=== PATIENT | female | born 1990 | race American Indian/Alaskan Native ===

== ENCOUNTER 2016-09-14 09:54 | Emergency (ER) | payer SELFPAY ==
[2016-09-14 10:31] VITALS: BP 117/75
[2016-09-14] MEDS ORDERED: TYLENOL #3 PO ONE (11:57)
[2016-09-14] MEDS ORDERED: FUL-GLO OP ONE (11:57)
[2016-09-14] MEDS ORDERED: TETRACAINE 0.5% OU ONE (11:57)
--- NOTE | 2016-09-14 13:21 | Emergency Department Report ---
Eye Injury/Foreign Body - HPI Duration: 1 Day Eye Location: Left Severity: Mild Tetanus Status: Unknown Eye Symptoms: Eye Pain: Yes, Blurred Vision: Yes, Eye Redness: Yes (mild), Grinding/Hammering Metal: No, Used Eye Protection: No, Contact Lens Use: No, Recalls Injury: Yes (hit in face with football), Photophobia: No Other History: 26 year old female presents to ED with left sided eye pain after being hit in face with football. patient denies LOC, bleeding, AMS, weakness, loss of vision. patient is stable, neurologically intact and in no acute distress. patient states LMP was September 05, 2016. ED Review of Systems ROS: Stated complaint: LT EYE INJURY Other details as noted in HPI Constitutional: denies: chills, fever Eyes: eye pain, vision change (mild blurry vision after incident. now resolved. ). denies: eye discharge ENT: denies: ear pain, throat pain Respiratory: denies: cough, shortness of breath, wheezing Cardiovascular: denies: chest pain, palpitations Endocrine: no symptoms reported Gastrointestinal: denies: abdominal pain, nausea, vomiting, diarrhea Genitourinary: denies: urgency, dysuria, discharge Musculoskeletal: denies: back pain, joint swelling, arthralgia Skin: denies: rash, lesions Neurological: headache (mild). denies: weakness, numbness, paresthesias, confusion, abnormal gait, vertigo Psychiatric: denies: anxiety, depression Hematological/Lymphatic: denies: easy bleeding, easy bruising ED Past Medical Hx - Past Medical History Previous Medical History?: Yes Hx Asthma: Yes - Surgical History Past Surgical History?: No - Social History Smoking Status: Never Smoker Substance Use Type: None Eye Injury Exam - Exam General: Vital signs noted. No distress. Alert and acting appropriately. normal strength in all 4 extremeties. patient is alert and oriented to person place and time. patient has normal observed gait. - Visual Acuity Bilateral Vision Acuity Degree: 20/20 Eye Exam: Left Injection (mild), Left Eye Foreign Body (none present), Left Lid Foreign Body (none present), Left Mucous Discharge (none present), Left Purulent Discharge (none present), Left Fluorescein Uptake (normal, no abrasion seen), Left Fluorescein Uptake (slit lamp) (normal, no abrasion seen), Both EOMI (normal), Neither Abnormal Pupil (normal), Neither Photophobia Right Vision Acuity Degree: 20/50 Left Vision Acuity Degree: 20/30 ED Course Vital Signs 09/14/16 09/14/16 10:29 12:20 Temperature 98.1 F Pulse Rate 74 Respiratory 16 16 Rate Blood Pressure 117/75 O2 Sat by Pulse 100 Oximetry ED Medical Decision Making - Medical Decision Making 26 year old female presents to ED with left eye pain after being hit in face with football. patient has negative slit lamp exam and understands and agrees to follow up with EYE MD when she returns home to [place] next week. patient is stable, neurologically intact and in no acute distress. Critical care attestation.: If time is entered above; I have spent that time in minutes in the direct care of this critically ill patient, excluding procedure time. ED Disposition Clinical Impression: Eye pain Qualifiers: Laterality: left Qualified Code(s): H57.12 - Ocular pain, left eye Disposition: DC-01 TO HOME OR SELFCARE Is pt being admited?: No Does the pt Need Aspirin: No Condition: Stable Referrals: PRIMARY CARE,MD [Primary Care Provider] - 3-5 Days Forms: Work/School Release Form(ED)
== END 2016-09-14 13:59 | disposition home or self-care (01) ==
LOC: ED 09:54
DX: H57.12 Ocular pain, left eye (principal); J45.909 Unspecified asthma, uncomplicated; W21.01XA Struck by football, initial encounter; Y93.89 Activity, other specified; Y92.89 Other specified places as the place of occurrence of the external cause; Y99.8 Other external cause status
CPT/HCPCS: 99283

== ENCOUNTER 2016-09-19 14:09 | Emergency (ER) | payer SELFPAY | END 2016-09-19 15:30 | disposition left against medical advice (07) | LOC: ED 14:09 | DX: M54.9 Dorsalgia, unspecified (principal); R07.9 Chest pain, unspecified; Z53.21 Procedure and treatment not carried out due to patient leaving prior to being seen by health care provider ==

== ENCOUNTER 2016-09-20 08:29 | Emergency (ER) | payer SELFPAY ==
[2016-09-20 09:02] LABS: Bilirubin,Urine NEG (Negative); Blood,Urine NEG (Negative); Ketones,Urine NEG (Negative); Leukocyte Esterase,Urine NEG (Negative); Mucus,Urine FEW /HPF; Nitrite,Urine NEG (Negative); Protein,Urine <15 mg/dL mg/dL (Negative); Urobilinogen,Urine < 2.0 mg/dL (<2.0)
--- NOTE | 2016-09-20 11:29 | XRay Report ---
LUMBOSACRAL SPINE, 3 VIEWS: History: Back pain Findings: The vertebral bodies, disk spaces and posterior elements are intact. No compression deformity or malalignment. The SI joints are symmetric and unremarkable. Impression: 1. No evidence for acute injury to the lumbar spine.
--- NOTE | 2016-09-20 12:42 | Emergency Department Report ---
ED Back Pain/Injury HPI - General Chief Complaint: Back Pain/Injury Stated Complaint: CHEST PAIN/BACK PAIN Time Seen by Provider: 09/20/16 12:26 Source: patient Limitations: No Limitations - History of Present Illness Initial Comments: 26-year-old female past medical history asthma presents with complaint of back pain since last night. Patient states she was lifting a 60 pound box at work and when she lifted the box up she felt pain in her lower back. Patient states she has had some spasms and lower back pain radiating around to her right mid axillary region. Patient states she has not taken any medicines for the pain. States she does not like taking pills. Denies any other injuries, patient is fully ambulatory without assistance. States that her back feels slightly stiff. Denies any bladder or bowel incontinence, denies any saddle paresthesias. Patient states she was in usual state of health and not in pain until she lifted this object. Pain is worse with movement, turning trunk or bending back. Patient denies any dysuria or increased urinary frequency MD Complaint: back pain -: During the night, Last night Similar Symptoms Previously: No Place: work Radiation: none Severity: moderate Severity scale (0 -10): 6 Quality: aching Consistency: intermittent Worsens With: movement Context: while lifting, turning/twisting, bending - Related Data Previous Rx's Medication Instructions Recorded Last Taken Type Cyclobenzaprine HCl [Flexeril 5 MG 5 mg PO TID PRN #6 tab 09/20/16 Unknown Rx TAB] Ibuprofen [Motrin] 600 mg PO Q8H PRN #20 tablet 09/20/16 Unknown Rx Allergies Allergy/AdvReac Type Severity Reaction Status Date / Time No Known Allergies Allergy Verified 09/20/16 08:34 ED Review of Systems ROS: Stated complaint: CHEST PAIN/BACK PAIN Other details as noted in HPI Constitutional: denies: chills, fever Eyes: denies: eye pain, eye discharge, vision change ENT: denies: ear pain, throat pain Respiratory: denies: cough, shortness of breath, wheezing Cardiovascular: denies: chest pain, palpitations Endocrine: no symptoms reported Gastrointestinal: denies: abdominal pain, nausea, diarrhea Genitourinary: denies: urgency, dysuria, discharge Musculoskeletal: back pain. denies: joint swelling, arthralgia Skin: denies: rash, lesions Neurological: denies: headache, weakness, paresthesias Psychiatric: denies: anxiety, depression Hematological/Lymphatic: denies: easy bleeding, easy bruising ED Past Medical Hx - Past Medical History Hx Asthma: Yes - Surgical History Past Surgical History?: No - Social History Smoking Status: Never Smoker Substance Use Type: Alcohol - Medications Home Medications: Home Medications Medication Instructions Recorded Confirmed Last Taken Type Cyclobenzaprine HCl [Flexeril 5 MG 5 mg PO TID PRN #6 tab 09/20/16 Unknown Rx TAB] Ibuprofen [Motrin] 600 mg PO Q8H PRN #20 tablet 09/20/16 Unknown Rx ED Physical Exam - General Limitations: No Limitations General appearance: alert, in no apparent distress - Head Head exam: Present: atraumatic, normocephalic - Eye Eye exam: Present: normal appearance, PERRL, EOMI - ENT ENT exam: Present: mucous membranes moist - Neck Neck exam: Present: normal inspection - Respiratory Respiratory exam: Present: normal lung sounds bilaterally. Absent: respiratory distress - Cardiovascular Cardiovascular Exam: Present: regular rate, normal rhythm. Absent: systolic murmur, diastolic murmur, rubs, gallop - GI/Abdominal GI/Abdominal exam: Present: soft, normal bowel sounds - Extremities Exam Extremities exam: Present: normal inspection - Back Exam Back exam: Present: normal inspection, tenderness, paraspinal tenderness ( patient has reproducible paraspinal tenderness at base of trapezius muscle on right side back. Palpable muscle spasm) - Neurological Exam Neurological exam: Present: alert, oriented X3, CN II-XII intact, normal gait - Psychiatric Psychiatric exam: Present: normal affect, normal mood - Skin Skin exam: Present: warm, dry, intact, normal color. Absent: rash ED Course Vital Signs 09/20/16 08:37 Temperature 98.4 F Pulse Rate 67 Respiratory 17 Rate Blood Pressure 113/73 O2 Sat by Pulse 100 Oximetry ED Medical Decision Making - Medical Decision Making A/P: Back muscle strain, musculoskeletal pain 1-x-ray L spine within normal limits, urinalysis unremarkable. Patient is ambulatory no saddle paresthesias. pain occurred directly after lifting heavy box. Denies any direct trauma to back. 2-pain is reproducible on clinical exam and palpation of the right trapezius and latissimus muscles 3-Motrin when necessary, short course of Flexeril 4- follow-up with primary doctor Critical care attestation.: If time is entered above; I have spent that time in minutes in the direct care of this critically ill patient, excluding procedure time. ED Disposition Clinical Impression: Back pain Qualifiers: Back pain location: low back pain Chronicity: acute Back pain laterality: right Sciatica presence: without sciatica Qualified Code(s): M54.5 - Low back pain Disposition: TO HOME OR SELFCARE Is pt being admited?: No Does the pt Need Aspirin: No Condition: Stable Instructions: Acute Low Back Pain (ED), Back Pain (ED) Prescriptions: Cyclobenzaprine HCl [Flexeril 5 MG TAB] 5 mg PO TID PRN #6 tab PRN Reason: Muscle Spasm Ibuprofen [Motrin] 600 mg PO Q8H PRN #20 tablet PRN Reason: Pain Referrals: [facility] [Provider Group] - 3-5 Days Time of Disposition: 13:01
[2016-09-20 13:09] VITALS: BP 118/71
== END 2016-09-20 13:08 | disposition home or self-care (01) ==
LOC: ED 08:29
DX: M54.5 Low back pain (principal); J45.909 Unspecified asthma, uncomplicated
CPT/HCPCS: 72100; 81001; 81025; 99283